=== PATIENT | female | born 1960 | race Asian ===

== ENCOUNTER 2019-08-06 09:37 | Emergency (ER) | payer OTHER ==
[~2019-08-06] VITALS: Ht 160 cm; Wt 63.5 kg
[2019-08-06 09:43] VITALS: Ht 160 cm; Wt 63.5 kg
[2019-08-06 11:42] VITALS: BP 145/94
== END 2019-08-06 11:10 | disposition home or self-care (01) ==
LOC: ED 09:37
DX: J06.9 Acute upper respiratory infection, unspecified (principal); J45.909 Unspecified asthma, uncomplicated; I10 Essential (primary) hypertension; E78.00 Pure hypercholesterolemia, unspecified; Z20.828 Contact with and (suspected) exposure to other viral communicable diseases
CPT/HCPCS: Q0092; U0002